=== PATIENT | male | born 1975 | race Caucasian/White ===

== ENCOUNTER → 2022-11-21 | Outpatient (CLI) | payer OTHER ==
[~2022-11-21] VITALS: Ht 182.9 cm; Wt 127.3 kg
[~2022-11-21] MED LIST: GADOTERATE 0.5 MMOL/ML (CLARISCAN) 15 ML VIAL IV ONE; IOHEXOL 240 MGI/ML 50 ML (OMNIPAQUE) VIAL IV ONE; LIDOCAINE 1% INJ 30 ML (XYLOCAINE) VIAL ONE
--- NOTE | 2022-11-21 18:35 | Diagnostic Imaging Report ---
INDICATION: Shoulder pain. EXAMINATION: Left shoulder injection for MRI. COMPARISON: There are no prior studies available for comparison. PROCEDURE: Following aseptic preparation of the skin and administration of local anesthesia, a 21-gauge needle was advanced into the glenohumeral joint using fluoroscopic guidance. Subsequently, a 10 mL mixture of Omnipaque 240, saline and 0.4ml Clariscan was injected. The patient tolerated the procedure well and was sent to the MR suite in good condition. IMPRESSION: There has been a successful injection of the left glenohumeral joint. MRI is pending for further study. Dictated by: Dictated on workstation # [id number]
--- NOTE | 2022-11-21 18:55 | Diagnostic Imaging Report ---
PROCEDURE: CT left upper extremity with contrast. TECHNIQUE: Axial images were obtained through the left upper extremity after intravenous contrast and reformatted into coronal and sagittal oblique planes. Auto Exposure Controls were utilized during the CT exam to meet ALARA standards for radiation dose reduction. INDICATION: Shoulder pain. FINDINGS: Originally, the patient was scheduled for an MRI evaluation of the left shoulder. However due to the patient's body habitus he could not safely fit into the MRI unit. Subsequently, it was elected to proceed with the exam using computed tomography. The contrast appears to be confined to the glenohumeral joint. There is no extension of the contrast into the subacromial or subdeltoid bursa to indicate a rotator cuff tear. The supraspinous muscle does not seem to be retracted or bunched. However, there is hypertrophy of the acromioclavicular joint and this does result in narrowing of the outlet for the supraspinous muscle. The biceps tendon and the subscapularis tendon, where visualized, are intact. The labrum may be slightly thinned posteriorly but for the most part the labrum seems to be intact. There is no evidence for a labral tear. There is no fracture or acute bony abnormality appreciated. The soft tissues are unremarkable. The left lung, where visualized, is clear. IMPRESSION: 1. There is no evidence for a tear of the rotator cuff. 2. The labrum may be slightly thinned posteriorly but for the most part the labrum seems to be intact. 3. There is hypertrophy of the acromioclavicular joint and this does result in narrowing of the outlet for the supraspinous muscle. 4. There is no acute bony abnormality appreciated. Dictated by: Dictated on workstation # [id number]
== END ==
LOC: RAD 12:53
DX: S46.912A Strain of unspecified muscle, fascia and tendon at shoulder and upper arm level, left arm, initial encounter (principal); X58.XXXA Exposure to other specified factors, initial encounter
CPT/HCPCS: 23350; 73040; 73201

== ENCOUNTER 2023-08-19 15:18 | Emergency (ER) | payer OTHER ==
[~2023-08-19] VITALS: Ht 180 cm; Wt 131.0 kg
[2023-08-19] MEDS ORDERED: morphine INJ 10 MG/ML 1ML (SYR OR VIAL) IM STA (15:28)
[2023-08-19] MEDS ORDERED: KETOROLAC INJ 15 MG/ML VIAL IM ONE (15:30)
--- NOTE | 2023-08-19 15:32 | ED Upper Extremity ---
General Chief Complaint: Upper Extremity Stated Complaint: WC,L SIDE SHOULDER PAIN Source: patient, family Exam Limitations: no limitations History of Present Illness Date Seen by Provider: Aug 19, 2023 Time Seen by Provider: 15:20 Initial Comments 47-year-old male [id number]-[id number] with recent left shoulder labral repair and biceps tendon repair over a month ago coming in due to left shoulder pain. He states he had a workers comp case that started all this where he dislocated his left shoulder. He has been following up with a surgeon in [place] who performed the surgery. Things have been going well, and he sat down on a car, and felt his arm pop. He feels like his shoulder is dislocated. He is having severe pain and is unable to move his shoulder per the patient. He is taking cyclobenzaprine, methocarbamol, and oxycodone daily. Allergies and Home Medications Allergies Coded Allergies: No Allergy Information Available (Unverified , 11/21/22) Patient Home Medication List Home Medication List Reviewed: Yes Review of Systems Constitutional: No fever EENTM: no symptoms reported Respiratory: no symptoms reported Cardiovascular: no symptoms reported Gastrointestinal: no symptoms reported Genitourinary: no symptoms reported Musculoskeletal: see HPI Skin: no symptoms reported Past Ugcymmd-Vhkqfi-Ockwhp Hx Patient Social History Tobacco Use?: No Substance use?: No Alcohol Use?: No Past Medical History Surgery/Hospitalization HX: shoulder labrum repair Surgeries: Yes Physical Exam Vital Signs Vital Signs - First Documented 08/19/23 15:20 Temp 37.1 Pulse 102 Resp 16 B/P (MAP) 154/86 (108) Pulse Ox 97 O2 Delivery Room Air Capillary Refill : Height, Weight, BMI Height: '" Weight: lbs. oz. kg; 38.05 BMI Method: General Appearance: WD/WN, mild distress HEENT: PERRL/EOMI, normal ENT inspection, pharynx normal Neck: non-tender, full range of motion, supple, normal inspection Cardiovascular: regular rate, rhythm, no edema, no murmur Respiratory: chest non-tender, lungs clear, normal breath sounds, no respiratory distress, no accessory muscle use Gastrointestinal: normal bowel sounds, non tender, soft Back: normal inspection, no CVA tenderness, no vertebral tenderness Shoulder: pain (Left shoulder tenderness with any palpation and with any passive range of motion) Elbow/Forearm: normal inspection, non-tender, no evidence of injury, normal ROM Wrist: Yes normal inspection, Yes non-tender, Yes no evidence of injury, Yes normal ROM Hand: normal inspection, non-tender, no evidence of injury, normal ROM Neurologic/Tendon: normal sensation, normal motor functions, normal tendon functions Neurologic/Psychiatric: no motor/sensory deficits, alert, normal mood/affect Skin: normal color, warm/dry Progress/Results/Core Measures Results/Orders My Orders Orders - KEILA JULES MD Ketorolac Injection (Ketorolac Injection (08/19/23 15:30) Morphine Injection (Morphine Injection (08/19/23 15:28) Shoulder 3 View Left (08/19/23 15:28) Medications Given in ED Current Medications Medications Dose Ordered Sig/Curtis Route Start Time Stop Time Status Last Admin Dose Admin Ketorolac Tromethamine 15 mg ONCE ONCE IM 08/19/23 15:30 08/19/23 15:31 DC 08/19/23 15:33 15 MG Vital Signs/I&O 08/19/23 08/19/23 15:20 15:56 Temp 37.1 37.1 Pulse 102 102 Resp 16 16 B/P (MAP) 154/86 (108) 154/86 Pulse Ox 97 97 O2 Delivery Room Air Room Air Progress Progress Note : Progress Note 47-year-old male with above history coming in due to left shoulder pain. ABCs were intact and vitals were stable on presentation. The patient is neurovascularly intact, but does have significant pain with any palpation of the shoulder or any passive range of motion of his shoulder. He has been working on range of motion with physical therapy, and has been very minimal since the surgery. It will be 4 weeks since the surgery starting tomorrow. X-ray ordered and interpreted by me and was negative for dislocation or fracture. I did a iqgbc-me-nsin ultrasound, and his biceps tendon does not look ruptured, and at least the supraspinatus at the insertion does appear normal as well. He has normal sensation of the axilla as well. The patient describes a ball of muscle like a softball coming up when the pain started and this went away. I suspect he had a muscular spasm at the back of his shoulder with continued pain. Given that he has significant pain with any range of motion, we will put him in a sling and have him follow-up as quickly as possible with his shoulder surgeon. He was given IM morphine and Toradol on arrival while waiting for x-ray. Diagnostic Imaging Diagonstic Imaging: Xray (left shoulder) Comments [facility] [place], [place] NAME: JOSE EDUARDO RAMIREZ [facility] REC#: [id number] PT STATUS: REG ER : 1975 PHYSICIAN: KEILA JULES MD ADMIT DATE: 08/19/23/ER FS Draft Date of Exam:08/19/23 SHOULDER 3 VIEW LEFT EXAMINATION: Left shoulder radiographs, 3 views. COMPARISON: CT left shoulder November 21, 2022. HISTORY: 47-year-old male, left shoulder pain. Sensation of shoulder dislocation. FINDINGS: The humeral head is currently not dislocated. The glenohumeral joint space is well maintained. The acromioclavicular joint is normally aligned. There are no acromioclavicular degenerative changes. There is no identified acute fracture. IMPRESSION: 1. Humeral head is not currently dislocated. 2. Additional radiographic evaluation of the left shoulder is unremarkable. Dictated on workstation # [id number] Dict: 08/19/23 1545 Trans: 08/19/23 1556 [facility] [id number] Interpreted by: DANIELLE BONILLA MD Electronically signed by: Departure Impression Primary Impression: Shoulder pain Qualified Codes: M25.512 - Pain in left shoulder Additional Impression: Muscle spasm of shoulder region Disposition: 01 HOME, SELF-CARE Condition: Stable Departure-Patient Inst. Decision time for Depature: 16:15 Referrals: NO,LOCAL PHYSICIAN (PCP/Family) Primary Care Physician Patient Instructions: Shoulder Pain (DC) Add. Discharge Instructions: Based on the x-ray, your shoulder is not dislocated and there is no bony injury. Based on what you are describing with the "softball mass" on the back of your shoulder this is most likely a muscle spasm that will continue to cause pain. Please follow back up with your surgeon, call them as soon as possible and discuss the case. Take ibuprofen and your home oxycodone as needed for pain. Work/School Note: Work Release Form Date Seen in the Emergency Department: Aug 19, 2023 Return to Work: Aug 20, 2023 Restrictions: No Restrictions KEILA JULES MD Aug 19, 2023 15:31
[2023-08-19 15:56] VITALS: BP 154/86
--- NOTE | 2023-08-19 15:56 | Diagnostic Imaging Report ---
EXAMINATION: Left shoulder radiographs, 3 views. COMPARISON: CT left shoulder November 21, 2022. HISTORY: 47-year-old male, left shoulder pain. Sensation of shoulder dislocation. FINDINGS: The humeral head is currently not dislocated. The glenohumeral joint space is well maintained. The acromioclavicular joint is normally aligned. There are no acromioclavicular degenerative changes. There is no identified acute fracture. IMPRESSION: 1. Humeral head is not currently dislocated. 2. Additional radiographic evaluation of the left shoulder is unremarkable. Dictated by: Dictated on workstation # [id number]
== END 2023-08-19 16:02 | disposition home or self-care (01) ==
LOC: EDUNIT# 15:18 → ER FS 15:21
DX: M62.838 Other muscle spasm (principal)
CPT/HCPCS: 73030; 96372